=== PATIENT | female | born 1975 | race Caucasian/White ===

== ENCOUNTER 2016-11-17 16:41 | Inpatient (IN) ==
[2016-11-17] MEDS ORDERED: Ipratropium/Albuterol Neb 3 ML ONE (16:53)
[2016-11-17] MEDS ORDERED: Ipratropium/Albuterol Neb 3 ML IH ONE ×2 (16:57→17:01)
[2016-11-17] MEDS ORDERED: *HR* HYDROmorphone (PF) 1 MG/ML SYRINGE IVP ONE (17:00)
[2016-11-17 17:14] LABS: Hematocrit 40.2 % (35.3-44.9); Immature Granulocytes % 0.8 % (0-4); Lymphocytes % 4.6 %; Mean Corpuscular HGB Conc 32.3 g/dL (31.6-35.5); Monocytes % 3.3 %; Platelet Count 365 K/mcL (140-400); Red Blood Count 3.94 M/mcL (3.82-4.97); Red Cell Distribution Width 14.5 % (11.5-14.5); Segmented Neutrophils % 91.1 %
[2016-11-17 17:15] LABS: Basophils # 0.1 K/mcL (0.0-0.2); Basophils % 0.2 %; Monocytes # 0.7 K/mcL (0.0-1.3); Neutrophils # 19.7 K/mcL (1.6-8.9)
[2016-11-17 17:32] LABS: Alanine Aminotransferase 10 Units/L (0-55); Albumin 2.8 g/dL (3.5-5.0); Albumin/Globulin Ratio 0.8 (1.1-2.2); Alkaline Phosphatase 85 Units/L (38-126); Aspartate Amino Transferase 34 Units/L (5-34); BUN/Creatinine Ratio 13 (6-26); Bilirubin,Direct 0.2 mg/dL (0.0-0.5); Bilirubin,Indirect 0.4 mg/dL (0.0-1.2); Bilirubin,Total 0.6 mg/dL (0.2-1.2); Blood Urea Nitrogen 9 mg/dL (7-20); Calcium 9.3 mg/dL (8.6-10.8); Carbon Dioxide 26 mEq/L (19-29); Chloride 101 mEq/L (98-109); Globulin 3.7 g/dL (2.4-3.5); Glucose 121 mg/dL (70-99); Osmolality,Calculated 284 (280-300); Potassium 3.5 mEq/L (3.5-4.5); Sodium 137 mEq/L (136-145); Total Protein 6.5 g/dL (6.0-8.3); eGFR For African Americans > 60 (> 60); eGFR For Non-African Americans > 60 (> 60)
[2016-11-17] MEDS ORDERED: Vancomycin 750 MG in D5% in Water 250 ML IVPB ONE (17:35)
[2016-11-17] MEDS ORDERED: 0.9 % Sodium Chloride 1,000 ML IVC ONE (17:35)
--- NOTE | 2016-11-17 17:36 | Emergency Department Note ---
Disposition Clinical Impression: Small cell lung cancer Qualifiers: Laterality: right Qualified Code(s): C34.91 - Malignant neoplasm of unspecified part of right bronchus or lung Sepsis Qualifiers: Sepsis type: sepsis due to unspecified organism Qualified Code(s): A41.9 - Sepsis, unspecified organism Pneumonia Qualifiers: Pneumonia type: due to unspecified organism Laterality: bilateral Lung location : unspecified part of lung Qualified Code(s): J18.9 - Pneumonia, unspecified organism Disposition: Admitted As Inpatient Condition: Fair Forms: ED Satisfaction Letter Time of Disposition: 18:40 General Adult HPI - General Chief complaint: ED Shortness of Breath/Dyspnea Stated complaint: SOB/VIRI Time Seen by Provider: 11/17/16 16:46 Source: patient Nursing Notes Reviewed: Yes Vital Signs Reviewed: Yes - History of Present Illness HPI Narrative: 3-4 day history of abdominal pain and increasing shortness of breath. Does have a history of lung cancer and abdominal cancer. Subjective fevers at home. Right lower quadrant pain that is not consistent with her previous pain. Is more severe. Shortness of breath that is associated with a productive cough of yellow sputum. Abdominal pain is constant. No radiation. Pain Scale: 5 - Related Data Home Medications Medication Instructions Recorded Confirmed Albuterol Sulfate [Ventolin Hfa] 2 puff IH Q4H PRN 03/30/16 11/17/16 Ziprasidone HCl [Geodon] 60 mg PO BID 03/30/16 11/17/16 lamoTRIgine [Lamictal] 150 mg PO BID 03/30/16 11/17/16 Albuterol Neb [Proventil Neb] 2.5 mg IH TID PRN 04/08/16 11/17/16 Previous Rx's Medication Instructions Recorded Dexamethasone [Decadron] 4 mg PO BID #40 tab 04/16/16 Ondansetron [Zofran] 8 mg PO Q8HR PRN #90 tablet 04/16/16 Prochlorperazine Maleate 10 mg PO Q8HR PRN #90 tablet 04/16/16 [Compazine] Docusate Sodium [Colace] 100 mg PO BID PRN #60 capsule 06/08/16 Lactulose 10 gm PO BID PRN #300 mls 06/29/16 Diphenoxylate/Atropine [Lomotil 1 each PO QID PRN #90 tablet 09/17/16 2.5 mg/0.025 mg] Loperamide [Imodium] 2 mg PO QID PRN #90 mls 09/17/16 Dronabinol [Marinol] 5 mg PO BIDLS #60 capsule 09/24/16 Dicyclomine [Bentyl] 10 mg PO QID PRN #120 capsule 10/02/16 Lidocaine/Prilocaine [Emla] 1 appl TP PRN PRN #30 gm 10/23/16 OxyCODONE Immed Rel [Roxicodone 5 5 mg PO Q6H PRN #90 tablet 11/02/16 MG] metroNIDAZOLE [Flagyl] 500 mg PO TID #30 tablet 11/06/16 Allergies Allergy/AdvReac Type Severity Reaction Status Date / Time No Known Allergies Allergy Verified 04/30/16 12:48 All systems ED: reviewed and negative except as stated. Constitutional: Reports: fever (Subjective.), chills ENT ED: Denies: congestion Cardiovascular: Reports: dyspnea on exertion. Denies: chest pain, palpitations , syncope Respiratory: Reports: cough, dyspnea, sputum production (Yellow) Gastrointestinal: Reports: abdominal pain (Right lower quadrant). Denies: nausea, vomiting, diarrhea Genitourinary: Denies: urgency, dysuria, frequency, hematuria Musculoskeletal: Denies: back pain, neck pain Integumentary: Denies: rash Past Medical History - Past Medical History Attestation: Yes The following information was validated with the patient. Source: patient Medical history: Reports: asthma, cancer, COPD Surgical history: Reports: other Psychiatric history: Reports: bipolar NEW CAR SALESPERSON history: Reports: no NEW CAR SALESPERSON history - Social History Smoking Status: Current every day smoker Smokeless Tobacco Status: No Alcohol use: Reports: none Drug use: Reports: marijuana Physical Exam - General General appearance: alert, in distress - Head Head exam: atraumatic, normocephalic, normal inspection - Eye Eye exam: Present: normal appearance, PERRL, EOMI. Absent: scleral icterus - ENT ENT exam: normal exam, normal oropharynx, mucous membranes dry - Neck Neck exam: Present: normal inspection, full ROM, trachea midline - Chest Chest inspection: Present: normal inspection, symmetric chest wall rise. Absent : tenderness - Respiratory Respiratory exam: Present: respiratory distress, accessory muscle use, other ( Crackles in the left upper lobe rales in the left lower. Mild crackles in the right.). Absent: wheezes - Cardiovascular Cardiovascular exam: Present: regular rate, normal rhythm, normal heart sounds - Abdominal Exam Abdominal exam: Present: soft, tenderness (nurse practitioner), guarding, rebound (rlq), normal bowel sounds. Absent: distention, rigidity, organomegaly , trauma, Forrester's sign, Rovsing's sign, tenderness at McBurney's Point, ascites - Extremities Exam Extremities exam: Present: normal inspection, full ROM, normal capillary refill. Absent: tenderness, pedal edema - Back Exam Back exam: Present: normal inspection, full ROM. Absent: tenderness - Neurological Exam Neurological exam: Present: alert, oriented X3 - Psychiatric Psychiatric exam: Present: normal affect, normal mood - Skin Skin exam: Present: warm, dry, intact, normal color. Absent: rash, cyanosis, diaphoresis, erythema Course Course Narrative: Female patient with a history of lung and abdominal cancer presenting to the emergency department complaining of new right sided lower quadrant abdominal pain and shortness of breath. She states her abdominal pain has been getting worse over the weekend as has her shortness of breath. She was seen by her primary care physician earlier today and sent into the emergency department. On arrival here her oxygen saturation was in the 80s so she was placed on a nonrebreather. Patient states this made her feel better. She states that she has lung cancer and her right lung. On exam her left lung field has crackles in the upper lobes and rales in the lower. Her right lung has mild crackles. She does appear dyspneic during conversation. Her heart is mildly tachycardic. Her abdomen is soft however she does grimace and complaint of pain to her right lower quadrant. She states that she has had subjective fevers over the weekend. She does report a cough with yellow sputum. She denies any chest pain. A chest x-ray as well as an abdominal CT. She had lab work earlier today that showed an elevated white blood cell count. We will begin to treat patient for suspected lung source. - Reevaluation(s) Reevaluation #1: Patient has a left lower lobe and possible right lower lobe pneumonia. We have started her on vancomycin and Zosyn. She does have an elevated lactic acid. We have given her a fluid bolus of 1500 mL. We will admit her to the hospital for pneumonia and sepsis. The CT of her abdomen showed no growth and her metastatic lesion in her abdomen. Patient responded well to the 3 duo nebs. Time: 18:17 Reevaluation #2: Patient reassessed. She was still on a nonrebreather so we switched her to a nasal cannula at 6 L. She is tolerating this well and is right around 93-94%. This seems to have eased her respiratory distress as she is breathing easier on the nasal cannula. Patient is agreeable to admission to the hospital. Time: 18:39 - Consultations Consultation #1: Carri LOVELACE accepted patient in stable condition Time: 18:39 Vital Signs Temperature 98.3 F 11/17/16 16:45 Pulse Rate 129 11/17/16 16:45 Respiratory Rate 24 11/17/16 16:45 Blood Pressure 102/80 11/17/16 16:45 O2 Sat by Pulse Oximetry 97 11/17/16 16:45 Temperature 98.3 F 11/17/16 16:45 Pulse Rate 111 11/17/16 18:18 Respiratory Rate 20 11/17/16 18:18 Blood Pressure 104/68 11/17/16 18:18 O2 Sat by Pulse Oximetry 90 11/17/16 18:18 Oxygen Delivery Oxygen Delivery Non Rebreather Mask Medical Decision Making - MDM Narrative Medical decision making narrative: I examined this patient and my medical decision-making was reviewed with the Resident Physician. I agree with the documented findings, disposition and treatment plan as described except to the extent set forth below. I evaluated this patient with Dr. Salazar and myself, I agree with her evaluation and treatment plan Suprax care of the patient's stay. Patient sent in from oncology due to dyspnea, history of ovarian and lung cancer which sounds and mist metastatic disease elevated white count. She also complains of right lower quadrant pain. Review her labs from today going data BMP chest x-ray abdominal CT and reassessed. She is in agreement with this plan. - Medical Records Medical records reviewed: Yes I reviewed the patient's medical records. - Lab Data Lab results reviewed: Yes I reviewed the patient's lab results. Result diagrams: 11/17/16 17:09 11/17/16 17:09 Lab Results 11/17/16 11/17/16 11/17/16 Range/Units 17:09 17:09 17:09 WBC 21.6 H (4.3-11.1) K/mcL RBC 3.94 (3.82-4.97) M/mcL Hgb 13.0 (11.5-15.4) g/dL Hct 40.2 (35.3-44.9) % MCV 102.0 H (83.0-100.0) fL MCH 33.0 (28.0-33.3) pg MCHC 32.3 (31.6-35.5) g/dL RDW 14.5 (11.5-14.5) % Plt Count 365 (140-400) K/mcL MPV 9.0 L (9.4-12.4) fL Immature Gran % 0.8 (0-4) % Seg Neutrophils % 91.1 % Lymphocytes % 4.6 % Monocytes % 3.3 % Eosinophils % 0.0 % Basophils % 0.2 % Neutrophils # 19.7 H (1.6-8.9) K/mcL Lymphocytes # 1.0 (0.6-4.6) K/mcL Monocytes # 0.7 (0.0-1.3) K/mcL Eosinophils # 0.0 (0.0-0.6) K/mcL Basophils # 0.1 (0.0-0.2) K/mcL Sodium 137 (136-145) mEq/L Potassium 3.5 (3.5-4.5) mEq/L Chloride 101 (98-109) mEq/L Carbon Dioxide 26 (19-29) mEq/L BUN 9 (7-20) mg/dL Creatinine 0.70 (0.57-1.11) mg/dL Est GFR ( Amer) > 60 (> 60) Est GFR (Non-Af Amer) > 60 (> 60) BUN/Creatinine Ratio 13 (6-26) Glucose 121 H (70-99) mg/dL Calculated Osmolality 284 (280-300) Lactic Acid 2.6 H (0.5-2.2) mmol/L Calcium 9.3 (8.6-10.8) mg/dL Phosphorus 3.8 (2.3-4.7) mg/dL Magnesium 1.6 (1.6-2.6) mg/dL Total Bilirubin 0.6 (0.2-1.2) mg/dL Direct Bilirubin 0.2 (0.0-0.5) mg/dL Indirect Bilirubin 0.4 (0.0-1.2) mg/dL AST 34 (5-34) Units/L ALT 10 (0-55) Units/L Alkaline Phosphatase 85 (38-126) Units/L Troponin I (0-0.03) ng/mL B-Natriuretic Peptide (0-100) pg/mL Serum Total Protein 6.5 (6.0-8.3) g/dL Albumin 2.8 L (3.5-5.0) g/dL Globulin 3.7 H (2.4-3.5) g/dL Albumin/Globulin Ratio 0.8 L (1.1-2.2) 11/17/16 11/17/16 Range/Units 17:09 17:09 WBC (4.3-11.1) K/mcL RBC (3.82-4.97) M/mcL Hgb (11.5-15.4) g/dL Hct (35.3-44.9) % MCV (83.0-100.0) fL MCH (28.0-33.3) pg MCHC (31.6-35.5) g/dL RDW (11.5-14.5) % Plt Count (140-400) K/mcL MPV (9.4-12.4) fL Immature Gran % (0-4) % Seg Neutrophils % % Lymphocytes % % Monocytes % % Eosinophils % % Basophils % % Neutrophils # (1.6-8.9) K/mcL Lymphocytes # (0.6-4.6) K/mcL Monocytes # (0.0-1.3) K/mcL Eosinophils # (0.0-0.6) K/mcL Basophils # (0.0-0.2) K/mcL Sodium (136-145) mEq/L Potassium (3.5-4.5) mEq/L Chloride (98-109) mEq/L Carbon Dioxide (19-29) mEq/L BUN (7-20) mg/dL Creatinine (0.57-1.11) mg/dL Est GFR ( Amer) (> 60) Est GFR (Non-Af Amer) (> 60) BUN/Creatinine Ratio (6-26) Glucose (70-99) mg/dL Calculated Osmolality (280-300) Lactic Acid (0.5-2.2) mmol/L Calcium (8.6-10.8) mg/dL Phosphorus (2.3-4.7) mg/dL Magnesium (1.6-2.6) mg/dL Total Bilirubin (0.2-1.2) mg/dL Direct Bilirubin (0.0-0.5) mg/dL Indirect Bilirubin (0.0-1.2) mg/dL AST (5-34) Units/L ALT (0-55) Units/L Alkaline Phosphatase (38-126) Units/L Troponin I 0.01 (0-0.03) ng/mL B-Natriuretic Peptide 31 (0-100) pg/mL Serum Total Protein (6.0-8.3) g/dL Albumin (3.5-5.0) g/dL Globulin (2.4-3.5) g/dL Albumin/Globulin Ratio (1.1-2.2) - Radiology Data Radiology results reviewed: Yes I reviewed the patient's radiology results. Chest X-Ray 11/17/16 16:46 IMPRESSION: New diffuse airspace disease within the left lung and within the right base. Findings concerning for multifocal pneumonia. Patient's right hilar mass and adenopathy are again seen, better evaluated on recent CT. D/ / Cielo Carver MD / Cielo Carver MD Interpreting Provider: Cielo Carver MD Abdomen/Pelvis CT 11/17/16 17:18 IMPRESSION: 1. In the interval, there has been development of extensive alveolar ground-glass opacity throughout both visualized lungs, greater on the left. This is a nonspecific finding. It can be seen with alveolar hemorrhage, pneumonia, and pulmonary edema. 2. Re- demonstration of a large pelvic metastatic lesion, which is unchanged in size. This creates mass effect upon the pelvic viscera, similar when compared to the previous exam. Having said that, the hydronephrosis seen on the right previously is no longer identified. D/ / Michael Foley MD / Michael Foley MD Interpreting Provider: Michael Foley MD - EKG Data EKG #1 EKG attestation: Yes I reviewed and interpreted this EKG. EKG results narrative: Sinus tachycardia at a rate of 106. [place] interval is 142. Rastafarian is 80. QT is 327. QTC is 389. No signs of ischemia.
[2016-11-17] MEDS ORDERED: Piperacillin/Tazobactam 3.375 GM in D5% in Water (Mini-Bag+) 100 ML IVPB ONE (17:41)
[2016-11-17] MEDS ORDERED: 0.9 % Sodium Chloride 500 ML IVC ONE (17:44)
[2016-11-17 18:00] LABS: Magnesium 1.6 mg/dL (1.6-2.6); Phosphorous 3.8 mg/dL (2.3-4.7)
[2016-11-17 18:43] LABS: Bilirubin,Urine Small (Negative); Blood,Urine Negative (Negative); Clarity,Urine Clear (Clear); Color,Urine Dark Yellow (Yellow); Glucose,Urine (UA) Normal (Normal); Ketones,Urine Trace mg/dL (Negative); Leukocyte Esterase,Urine Trace (Negative); Nitrite,Urine Positive (Negative); Protein,Urine 100 mg/dL (Neg-Trace); Urobilinogen,Urine Normal (Normal)
[2016-11-17 18:46] LABS: Bacteria,Urine None Seen per hpf (None-Few); RBC,Urine 15-30 per hpf (0-3); Squamous Epithelial Cell,Urine Many per lpf (None-Few)
[2016-11-17 18:48] LABS: Specific Gravity,Urine >= 1.099 (1.010-1.025)
[2016-11-17] MEDS: Nicotine 21 MG PATCH.TD24 TD SCH (19:17)
[2016-11-17] MEDS ORDERED: Ondansetron 4 MG/2 ML VIAL IVP PRN (19:57)
[2016-11-17] MEDS ORDERED: MOM Conc 10 ML UD.LIQ PO PRN (19:57)
[2016-11-17] MEDS ORDERED: Acetaminophen 325 MG TABLET PO PRN (19:57)
[2016-11-17] MEDS ORDERED: *HR* Promethazine 25 MG/ML VIAL IVP PRN (19:57)
[2016-11-17] MEDS ORDERED: Naloxone 0.4 MG/ML INJ IVP PRN (19:57)
[2016-11-17] MEDS ORDERED: *HR* HYDROmorphone (PF) 1 MG/ML SYRINGE IVP PRN (19:57)
[2016-11-17] MEDS ORDERED: 0.9 % Sodium Chloride 1,000 ML IVC SCH (20:00)
[2016-11-17] MEDS ORDERED: Albuterol 2.5 MG/3 ML NEBULIZER IH PRN (20:03)
[2016-11-17] MEDS ORDERED: Budesonide/Formoterol 160/4.5 MDI IH PRN (20:03)
[2016-11-17] MEDS: lamoTRIgine 100 MG TABLET PO SCH (21:16)
[2016-11-17] MEDS: Ziprasidone 20 MG CAPSULE PO SCH (21:17)
[2016-11-17] MEDS: *HR* HYDROcodone/Acet 5/325 mg TABLET PO PRN (21:17)
[2016-11-17] MEDS: Famotidine 20 MG TABLET PO SCH (21:17)
--- NOTE | 2016-11-17 21:48 | Internal Med History&Physical ---
Date of Encounter: 11/17/16 Time of Encounter: 08:45 Assessment and Plan (1) Acute respiratory failure with hypoxia Current visit: Yes Status: Acute Will admit the pt into Tele Pt does meet sepsis criteria with elevated WBC, Tachycardia, source of as PNA Reviewed labs and CXR and CT of ABd/ Pelvis CXR showed patchy infiltrates Will start her on empirical abx Zosyn and Vancomycin Cont duoneb and O2 also place her on high dose IV steroids Hold IV fluids due to pulmonary edema Blood cx were sent will get sputum cx Lactic acid already started trending down (2) Pneumonia Current visit: Yes Status: Acute Mostly bacterial pneumonia with possible post obstructive pneumonia Qualifiers: Pneumonia type: due to unspecified organism Laterality: bilateral Lung location: unspecified part of lung Qualified Code(s): J18.9 - Pneumonia, unspecified organism (3) Sepsis Current visit: Yes Status: Acute see above Qualifiers: Sepsis type: sepsis due to unspecified organism Qualified Code(s): A41.9 - Sepsis, unspecified organism (4) Pulmonary edema Current visit: Yes Status: Acute Due to pneumonia hold in IV fluids now will give Lasix PRN only due to her Sepsis Qualifiers: Qualified Code(s): J81.0 - Acute pulmonary edema (5) Small cell lung cancer Current visit: Yes Status: Acute Will consult Heme Onc in AM Qualifiers: Laterality: right Qualified Code(s): C34.91 - Malignant neoplasm of unspecified part of right bronchus or lung (6) Pelvic mass Current visit: Yes Status: Acute Due to metastatic disease Cont supportive care with IV analgesics Heme Onc will be consulted in AM (7) Tobacco dependence Current visit: Yes Status: Acute Counseled to quit on nicotine patch Internal Medicine - H&P: HPI Chief complaint: Shortness of breath Admitted From: Emergency Dept Plans for Post Hospital Care: Home History of present illness: Ms. Prince is a 41 year old female with small cell lung cancer STAGE IV s/p bx of right hilar mediastinal mass, and metastatic pelvic masses,Palliative carboplatin etoposide chemotherapy. chronic tobacco dependence, chronic moderate intermittent asthma pt went to her Heme Onc office today with progressively worsening SOB and DE [place] ROSA, cough with yellow expectoration from last 4 -5 days. Pt was sent to our ER for further evaluation. She had CXR done which showed multi lobular pneumonia, also had CT of Abd and Pelvis done which showed interstitial lung disease, pulmonary edema and pneumonia. Pt states she is feeling little better now. Denied any CP. Still has moderate SOB and DE [place] ROSA Past Med Surg Social Fam HX - Past Medical History Medical history: asthma, cancer, COPD Psychiatric history: bipolar - Past Surgical History Surgical History: other - Social History Smoking Status: Current every day smoker Smokeless Tobacco Status: No Alcohol use: none Drug use: marijuana - Family History Mother Adopted: [place]: Deisy Dewey Age: 59 Family Member Ethnicity: Non- Living Status: Still Living Hx Family Cardiac Disorders: No Hx Family Respiratory Disorders: No Hx Family Cancer: Yes Hx Family GI Disorders: No Hx Family Endocrine Disorder: No Hx Family Musculoskeletal Disorders: No Hx Family Reproductive Disorders: No Internal Medicine - H&P: Meds Albuterol Sulfate [Ventolin Hfa] 2 puff IH Q4H PRN 03/30/16 [History] Ziprasidone HCl [Geodon] 60 mg PO BID 03/30/16 [History] lamoTRIgine [Lamictal] 150 mg PO BID 03/30/16 [History] Albuterol Neb [Proventil Neb] 2.5 mg IH TID PRN 04/08/16 [History] OxyCODONE Immed Rel [Roxicodone 5 MG] 5 mg PO Q6H PRN #90 tablet 11/02/16 [Rx] Budesonide/Formoterol 160/4.5 [Symbicort 160/4.5] 2 puff IH BID PRN 11/17/16 [ History] Riley-3/Dha/Epa/Fish Oil [Fish Oil Conc 1,000 mg Softgel] 1,000 mg PO DAILY 05/01 [History] 3 Allergy/AdvReac Type Severity Reaction Status Date / Time No Known Allergies Allergy Verified 04/30/16 12:48 All Systems PM: A 10-system review of systems was performed and is negative for pertinent findings except as documented above in the HPI. Review of systems: All the systems are reviewed everything is benign except the systems and symptoms I mentioned in the history of present illness - Constitutional Vitals: Temp Pulse Resp BP Pulse Ox 98.4 F 100 18 103/68 90 11/17/16 19:47 11/17/16 19:47 11/17/16 19:47 11/17/16 19:47 11/17/16 19:47 General appearance: Present: mild distress, A&O X 3, answers questions appropriately - Head Head exam: Present: atraumatic, normal inspection - Respiratory Respiratory exam: Present: decreased breath sounds, rales (mild), respiratory distress (mild), rhonchi, wheezes (moderate) - Cardiovascular Cardiovascular exam: Present: +S1, +S2, tachycardia. Absent: systolic murmur - GI/Abdominal GI/Abdominal exam: Present: soft, tenderness (mild discomfort noticed in the lower abdomen). Absent: rebound, rigid - Extremities Exam Extremities exam: Absent: calf tenderness, pedal edema, tenderness - Back Exam Back exam: Absent: CVA tenderness (L), CVA tenderness (R) - Neurological Exam Neurological exam: Present: alert, oriented X3 - Psychiatric Psychiatric exam: Present: anxious Internal Med - H&P Results - Labs CBC & Chem 7: 11/17/16 17:09 11/17/16 17:09
[2016-11-17] MEDS ORDERED: *HR* Morphine 2 MG/ML SYRINGE IVP PRN (23:34)
[2016-11-17] MEDS: 0.9 % Sodium Chloride 500 ML IVC SCH (23:48)
[2016-11-17] MEDS: Piperacillin/Tazobactam 3.375 GM in D5% in Water (Mini-Bag+) 100 ML IVPB SCH (23:48)
[2016-11-18] MEDS: 0.9 % Sodium Chloride 1,000 ML IVC SCH ×2 (01:09→15:49)
[2016-11-18] MEDS: MethylPREDNISolone 40 MG/ML VIAL IVP SCH ×4 (01:09→17:25)
[2016-11-18] MEDS: *HR* HYDROcodone/Acet 5/325 mg TABLET PO PRN ×2 (04:08→09:02)
[2016-11-18 06:20] LABS: Basophils % 0.1 %; Hemoglobin 11.5 g/dL (11.5-15.4); Immature Granulocytes % 1.1 % (0-4); Lymphocytes # 0.5 K/mcL (0.6-4.6); Lymphocytes % 2.5 %; Mean Corpuscular HGB Conc 31.9 g/dL (31.6-35.5); Mean Corpuscular Hemoglobin 33.2 pg (28.0-33.3); Mean Platelet Volume 9.4 fL (9.4-12.4); Monocytes # 0.2 K/mcL (0.0-1.3); Neutrophils # 19.6 K/mcL (1.6-8.9); Platelet Count 319 K/mcL (140-400); Red Blood Count 3.46 M/mcL (3.82-4.97); Red Cell Distribution Width 14.6 % (11.5-14.5); Segmented Neutrophils % 95.3 %
[2016-11-18] MEDS: *HR* Enoxaparin 40 MG/0.4 ML SYRINGE SQ SCH (06:33)
[2016-11-18 06:42] LABS: Alanine Aminotransferase 11 Units/L (0-55); Albumin 2.3 g/dL (3.5-5.0); Albumin/Globulin Ratio 0.7 (1.1-2.2); Alkaline Phosphatase 75 Units/L (38-126); Aspartate Amino Transferase 39 Units/L (5-34); BUN/Creatinine Ratio 16 (6-26); Bilirubin,Total 0.2 mg/dL (0.2-1.2); Blood Urea Nitrogen 9 mg/dL (7-20); Calcium 8.5 mg/dL (8.6-10.8); Carbon Dioxide 26 mEq/L (19-29); Chloride 106 mEq/L (98-109); Globulin 3.3 g/dL (2.4-3.5); Glucose 131 mg/dL (70-99); Magnesium 1.8 mg/dL (1.6-2.6); Osmolality,Calculated 286 (280-300); Phosphorous 3.1 mg/dL (2.3-4.7); Sodium 138 mEq/L (136-145); Total Protein 5.6 g/dL (6.0-8.3); eGFR For African Americans > 60 (> 60); eGFR For Non-African Americans > 60 (> 60)
[2016-11-18] MEDS ORDERED: Vancomycin 750 MG in D5% in Water 250 ML IVPB SCH (07:00)
[2016-11-18] MEDS ORDERED: Albuterol 2.5 MG/3 ML NEBULIZER IH PRN (07:53)
[2016-11-18] MEDS: Piperacillin/Tazobactam 3.375 GM in D5% in Water (Mini-Bag+) 100 ML IVPB SCH ×2 (09:04→15:50)
[2016-11-18] MEDS: lamoTRIgine 100 MG TABLET PO SCH ×2 (09:05→21:42)
[2016-11-18] MEDS: Famotidine 20 MG TABLET PO SCH ×2 (09:05→21:42)
[2016-11-18] MEDS: Nicotine 21 MG PATCH.TD24 TD SCH (09:05)
[2016-11-18] MEDS ORDERED: Aminoglycoside Consult 1 EACH MC ONE (09:08)
[2016-11-18] MEDS: Ziprasidone 20 MG CAPSULE PO SCH ×2 (09:08→21:42)
[2016-11-18] MEDS: Budesonide/Formoterol 160/4.5 MDI IH SCH ×2 (10:14→20:18)
--- NOTE | 2016-11-18 12:13 | Electrocardiograph Report ---
[place] [id number] Test Date: 2016-11-17 Pat Name: Teresa Prince Department: 103 Room: 2A14 Gender: F Quebracho Tanner: JUDY : 1975 Requested By: Celestino Bird Order Number: [id number] Reading MD: Rock Rocha Measurements Intervals [place] Rate: 106 P: 73 SC: 142 QRS: 90 QRSD: 80 T: 86 QT: 327 QTc: 389 Interpretive Statements SINUS TACHYCARDIA ABNORMAL RHYTHM ECG Electronically Signed On 11-18-2016 12:11:39 EDT by Rock Rocha
[2016-11-18] MEDS: *HR* Morphine 2 MG/ML SYRINGE IVP PRN ×2 (12:33→19:22)
--- NOTE | 2016-11-18 13:03 | Internal Med Progress Note ---
Date of Encounter: 11/18/16 Time of Encounter: 13:00 - Assessment and plan (1) Sepsis Current Visit: Yes Status: Acute Assessment and plan: Acute on chronic hypoxic respiratory failure due to pulmonary edema from Sepsis secondary to possible healthcare associated pneumonia/gram-negative pneumonia present upon admission Discontinue vancomycin, continue Zosyn day 2 and add Levaquin to cover for atypicals No IV fluid due to pulmonary edema CT scan of the abdomen showed bilateral pulmonary infiltrates the Gonzalo percent pneumonia or pulmonary edema, there is a large pelvic mass represents metastatic disease Qualifiers: Sepsis type: sepsis due to unspecified organism Qualified Code(s): A41.9 - Sepsis, unspecified organism (2) Pneumonia Current Visit: Yes Status: Acute Qualifiers: Pneumonia type: due to unspecified organism Laterality: bilateral Lung location: unspecified part of lung Qualified Code(s): J18.9 - Pneumonia, unspecified organism (3) Acute respiratory failure with hypoxia Current Visit: Yes Status: Acute (4) Pelvic mass Current Visit: Yes Status: Acute Assessment and plan: Follow-up with oncology as an outpatient Start OxyContin for pain (5) Tobacco dependence Current Visit: Yes Status: Acute Assessment and plan: Smoking cessation counseling (6) Pulmonary edema Current Visit: Yes Status: Acute Qualifiers: Qualified Code(s): J81.0 - Acute pulmonary edema (7) Small cell lung cancer Current Visit: Yes Status: Acute Qualifiers: Laterality: right Qualified Code(s): C34.91 - Malignant neoplasm of unspecified part of right bronchus or lung - Subjective Interval history: Physical still short of breath requiring 8 L of oxygen, denies any chest pain, is bringing up yellowish phlegm and coughing constantly, denies any dysuria, complains of abdominal pain 5 out of 10 in intensity. No diarrhea - Constitutional Vitals: Temp Pulse Resp BP Pulse Ox 98.3 F 87 17 108/66 96 11/18/16 10:58 11/18/16 10:58 11/18/16 10:58 11/18/16 10:58 11/18/16 10:58 General appearance: Present: mild distress, A&O X 3, answers questions appropriately - Head Head exam: Present: atraumatic, normocephalic - Eye Eye exam: Present: PERRL, conjuntiva pink, sclera anicteric Pupils: Present: PERRL - Neck Neck exam general surgery: Present: supple, trachea midline. Absent: lymphadenopathy - Respiratory Respiratory exam: Present: CTAB, rales, wheezes (Diffuse crackles and wheezing) . Absent: accessory muscle use, rhonchi - Cardiovascular Cardiovascular exam: Present: RRR, +S1, +S2. Absent: diastolic murmur, gallop, rubs, systolic murmur - GI/Abdominal GI/Abdominal exam: Present: distended (Distended abdomen, mildly tender to to palpation in the lower pelvic area, no rebound), normal bowel sounds, soft, no peritoneal signs. Absent: tenderness - Extremities Exam Extremities exam: Present: warm, radial pulses palpable and symmetrical. Absent : calf tenderness, cyanotic, pedal edema - Neurological Exam Neurological exam: Present: CN II-XII intact, oriented X3, no focal deficits. Absent: pronater drift, facial droop, speech deficit - Skin Skin exam: Present: dry, intact Internal Medicine: Result - Labs CBC & Chem 7: 11/18/16 05:50 11/18/16 05:50 Labs: Short CBC 11/18/16 Range/Units 05:50 WBC 20.6 H (4.3-11.1) K/mcL Hgb 11.5 D (11.5-15.4) g/dL Hct 36.0 (35.3-44.9) % Plt Count 319 (140-400) K/mcL Neutrophils # 19.6 H (1.6-8.9) K/mcL BMP 11/18/16 05:50 Sodium 138 Potassium 4.0 Chloride 106 Carbon Dioxide 26 BUN 9 Creatinine 0.58 Glucose 131 H Calcium 8.5 L Liver Function 11/18/16 Range/Units 05:50 Total Bilirubin 0.2 (0.2-1.2) mg/dL AST 39 H (5-34) Units/L ALT 11 (0-55) Units/L Alkaline Phosphatase 75 (38-126) Units/L Albumin 2.3 L (3.5-5.0) g/dL - VTE Documentation of Mechanical Device: Graduated compression elastic hosiery Consult Discharge Plan - Plan Referrals: Lucia Treviño, PHOTOGRAPHY EDITOR [Primary Care Provider] -
[2016-11-18] MEDS: Levofloxacin 750 MG/150 ML 750 MG/150 ML BAG IVPB SCH (13:55)
[2016-11-18] MEDS: *HR* OxyCODONE ER (12 HR) 10 MG TABLET PO SCH ×2 (13:55→21:42)
[2016-11-19] MEDS: MethylPREDNISolone 40 MG/ML VIAL IVP SCH ×3 (00:10→17:32)
[2016-11-19] MEDS: Piperacillin/Tazobactam 3.375 GM in D5% in Water (Mini-Bag+) 100 ML IVPB SCH ×4 (00:10→23:30)
[2016-11-19] MEDS: *HR* OxyCODONE Immed Rel 5 MG TABLET PO PRN ×2 (04:23→12:24)
[2016-11-19 05:37] LABS: Hematocrit 37.4 % (35.3-44.9); Mean Corpuscular HGB Conc 32.1 g/dL (31.6-35.5); Mean Corpuscular Hemoglobin 33.4 pg (28.0-33.3); Mean Corpuscular Volume 104.2 fL (83.0-100.0); Mean Platelet Volume 9.3 fL (9.4-12.4); Platelet Count 375 K/mcL (140-400); Red Blood Count 3.59 M/mcL (3.82-4.97); Red Cell Distribution Width 14.5 % (11.5-14.5)
[2016-11-19 05:52] LABS: BUN/Creatinine Ratio 13 (6-26); Blood Urea Nitrogen 8 mg/dL (7-20); Carbon Dioxide 26 mEq/L (19-29); Chloride 106 mEq/L (98-109); Glucose 153 mg/dL (70-99); Osmolality,Calculated 291 (280-300); Potassium 3.7 mEq/L (3.5-4.5); Sodium 140 mEq/L (136-145); eGFR For African Americans > 60 (> 60); eGFR For Non-African Americans > 60 (> 60)
[2016-11-19] MEDS: *HR* Enoxaparin 40 MG/0.4 ML SYRINGE SQ SCH (05:57)
[2016-11-19] MEDS: Famotidine 20 MG TABLET PO SCH ×2 (09:12→19:54)
[2016-11-19] MEDS: Nicotine 21 MG PATCH.TD24 TD SCH (09:12)
--- NOTE | 2016-11-19 10:09 | Internal Med Progress Note ---
Date of Encounter: 11/19/16 Time of Encounter: 10:06 - Assessment and plan (1) Sepsis Current Visit: Yes Status: Acute Assessment and plan: Acute on chronic hypoxic respiratory failure due to acute pulmonary edema from Sepsis secondary to possible healthcare associated pneumonia/gram-negative pneumonia present upon admission/ small cell carcinoma Discontinued vancomycin. Continue Zosyn day 3 and Levaquin day 2 to cover for atypicals No IV fluid due to pulmonary edema CT scan of the abdomen showed bilateral pulmonary infiltrates in both bases compatible with pneumonia or pulmonary edema, there is a large pelvic mass represents metastatic disease CT scan of the chest recommended by Dr Tavarez Qualifiers: Sepsis type: sepsis due to unspecified organism Qualified Code(s): A41.9 - Sepsis, unspecified organism (2) Pneumonia Current Visit: Yes Status: Acute Qualifiers: Pneumonia type: due to unspecified organism Laterality: bilateral Lung location: unspecified part of lung Qualified Code(s): J18.9 - Pneumonia, unspecified organism (3) Acute respiratory failure with hypoxia Current Visit: Yes Status: Acute (4) Pelvic mass Current Visit: Yes Status: Acute Assessment and plan: Follow-up with oncology Dr Tavarez will possible arrange radiotherapy either as inpatient or outpatient OxyContin for pain (5) Tobacco dependence Current Visit: Yes Status: Acute Assessment and plan: Smoking cessation counseling (6) Pulmonary edema Current Visit: Yes Status: Acute Qualifiers: Qualified Code(s): J81.0 - Acute pulmonary edema (7) Small cell lung cancer Current Visit: Yes Status: Acute Qualifiers: Laterality: right Qualified Code(s): C34.91 - Malignant neoplasm of unspecified part of right bronchus or lung - Subjective Interval history: Still very short of breath requiring 10 L of oxygen, denies any chest pain, is bringing up yellowish phlegm and coughing constantly, denies any dysuria, complains of abdominal pain 5 out of 10 in intensity. No diarrhea - Constitutional Vitals: Temp Pulse Resp BP Pulse Ox 97.6 F 82 18 115/78 90 11/19/16 07:08 11/19/16 07:08 11/19/16 07:08 11/19/16 07:08 11/19/16 07:46 General appearance: Present: mild distress, A&O X 3, answers questions appropriately Exam: - Head Head exam: Present: atraumatic, normocephalic - Eye Eye exam: Present: PERRL, conjuntiva pink, sclera anicteric Pupils: Present: PERRL - Neck Neck exam general surgery: Present: supple, trachea midline. Absent: lymphadenopathy - Respiratory Respiratory exam: Present: CTAB, rales, wheezes (Diffuse crackles and wheezing) . Absent: accessory muscle use, rhonchi - Cardiovascular Cardiovascular exam: Present: RRR, +S1, +S2. Absent: diastolic murmur, gallop, rubs, systolic murmur - GI/Abdominal GI/Abdominal exam: Present: distended (Distended abdomen, mildly tender to to palpation in the lower pelvic area, no rebound), normal bowel sounds, soft, no peritoneal signs. Absent: tenderness - Extremities Exam Extremities exam: Present: warm, radial pulses palpable and symmetrical. Absent : calf tenderness, cyanotic, pedal edema - Neurological Exam Neurological exam: Present: CN II-XII intact, oriented X3, no focal deficits. Absent: pronater drift, facial droop, speech deficit - Skin Skin exam: Present: dry, intact Internal Medicine: Result - Labs CBC & Chem 7: 11/19/16 05:22 11/19/16 05:22 Labs: Short CBC 11/19/16 Range/Units 05:22 WBC 20.3 H (4.3-11.1) K/mcL Hgb 12.0 (11.5-15.4) g/dL Hct 37.4 (35.3-44.9) % Plt Count 375 (140-400) K/mcL BMP 11/19/16 05:22 Sodium 140 Potassium 3.7 Chloride 106 Carbon Dioxide 26 BUN 8 Creatinine 0.61 Glucose 153 H Calcium 9.0 - VTE Documentation of Mechanical Device: Graduated compression elastic hosiery Consult Discharge Plan - Plan Referrals: Lucia Treviño, [employer] [facility] [Primary Care Provider] -
[2016-11-19] MEDS: Budesonide/Formoterol 160/4.5 MDI IH SCH ×2 (10:16→21:58)
[2016-11-19] MEDS: lamoTRIgine 100 MG TABLET PO SCH ×2 (10:38→19:51)
[2016-11-19] MEDS: *HR* OxyCODONE ER (12 HR) 10 MG TABLET PO SCH ×3 (10:38→23:30)
[2016-11-19] MEDS: Ziprasidone 20 MG CAPSULE PO SCH ×2 (10:38→19:54)
[2016-11-19] MEDS: *HR* Morphine 2 MG/ML SYRINGE IVP PRN (11:20)
[2016-11-19] MEDS: Levofloxacin 750 MG/150 ML 750 MG/150 ML BAG IVPB SCH ×2 (11:55→14:22)
[2016-11-19] MEDS: Furosemide 20 MG/2 ML VIAL IVP SCH ×2 (12:20→19:54)
[2016-11-19] MEDS ORDERED: MethylPREDNISolone 40 MG/ML VIAL IVP SCH (21:00)
[2016-11-20] MEDS: *HR* OxyCODONE Immed Rel 5 MG TABLET PO PRN ×3 (02:04→23:23)
[2016-11-20 04:02] LABS: Hematocrit 36.8 % (35.3-44.9); Hemoglobin 11.5 g/dL (11.5-15.4); Mean Corpuscular HGB Conc 31.3 g/dL (31.6-35.5); Mean Corpuscular Hemoglobin 32.6 pg (28.0-33.3); Mean Corpuscular Volume 104.2 fL (83.0-100.0); Mean Platelet Volume 9.2 fL (9.4-12.4); Platelet Count 409 K/mcL (140-400); Red Blood Count 3.53 M/mcL (3.82-4.97); Red Cell Distribution Width 14.6 % (11.5-14.5)
[2016-11-20 04:25] LABS: BUN/Creatinine Ratio 16 (6-26); Blood Urea Nitrogen 11 mg/dL (7-20); Calcium 8.9 mg/dL (8.6-10.8); Carbon Dioxide 33 mEq/L (19-29); Chloride 100 mEq/L (98-109); Glucose 129 mg/dL (70-99); Osmolality,Calculated 297 (280-300); Potassium 3.3 mEq/L (3.5-4.5); Sodium 143 mEq/L (136-145); eGFR For African Americans > 60 (> 60); eGFR For Non-African Americans > 60 (> 60)
[2016-11-20] MEDS: *HR* Enoxaparin 40 MG/0.4 ML SYRINGE SQ SCH (06:06)
[2016-11-20] MEDS: MethylPREDNISolone 40 MG/ML VIAL IVP SCH ×2 (06:06→17:15)
[2016-11-20] MEDS: *HR* OxyCODONE ER (12 HR) 10 MG TABLET PO SCH ×3 (09:03→23:24)
[2016-11-20] MEDS: Piperacillin/Tazobactam 3.375 GM in D5% in Water (Mini-Bag+) 100 ML IVPB SCH ×3 (09:03→23:24)
[2016-11-20] MEDS: Famotidine 20 MG TABLET PO SCH ×2 (09:03→20:21)
[2016-11-20] MEDS: Furosemide 20 MG/2 ML VIAL IVP SCH ×2 (09:03→17:15)
[2016-11-20] MEDS: Nicotine 21 MG PATCH.TD24 TD SCH (09:04)
[2016-11-20] MEDS: *HR* Morphine 2 MG/ML SYRINGE IVP PRN (10:24)
[2016-11-20] MEDS: lamoTRIgine 100 MG TABLET PO SCH ×2 (10:25→20:21)
[2016-11-20] MEDS: Ziprasidone 20 MG CAPSULE PO SCH ×2 (10:31→20:20)
[2016-11-20] MEDS: Budesonide/Formoterol 160/4.5 MDI IH SCH ×2 (10:47→19:42)
--- NOTE | 2016-11-20 13:07 | Internal Med Progress Note ---
Date of Encounter: 11/20/16 Time of Encounter: 13:05 - Assessment and plan (1) Sepsis Current Visit: Yes Status: Acute Assessment and plan: Acute on chronic hypoxic respiratory failure due to acute pulmonary edema from Sepsis secondary to possible healthcare associated pneumonia/gram-negative pneumonia present upon admission/ small cell carcinoma Discontinued vancomycin. Continue Zosyn day 4 and Levaquin day 3 to cover for atypicals No IV fluid due to pulmonary edema CT scan of the abdomen showed bilateral pulmonary infiltrates in both bases compatible with pneumonia or pulmonary edema, there is a large pelvic mass represents metastatic disease CT scan of the chest showed: Right hilar mass and mediastinal adenopathy has significantly increased in size compared to prior study. There also multiple new small nodules within the right upper lung lobe concerning for satellite nodules. Findings are consistent with progression of disease. The patient's hilar and mediastinal adenopathy causes severe narrowing of the right upper lobe pulmonary artery with occlusion of the apical branch. No pulmonary embolism identified. New diffuse ground-glass opacity throughout the left lung involving the majority of the right lower lung suggestive of pneumonia. Qualifiers: Sepsis type: sepsis due to unspecified organism Qualified Code(s): A41.9 - Sepsis, unspecified organism (2) Pneumonia Current Visit: Yes Status: Acute Qualifiers: Pneumonia type: due to unspecified organism Laterality: bilateral Lung location: unspecified part of lung Qualified Code(s): J18.9 - Pneumonia, unspecified organism (3) Acute respiratory failure with hypoxia Current Visit: Yes Status: Acute (4) Pelvic mass Current Visit: Yes Status: Acute Assessment and plan: Follow-up with oncology Dr Tavarez will possible arrange radiotherapy in the near future OxyContin for pain (5) Tobacco dependence Current Visit: Yes Status: Acute Assessment and plan: Smoking cessation counseling (6) Pulmonary edema Current Visit: Yes Status: Acute Assessment and plan: Continue Lasix, Potassium due to hypokalemia Qualifiers: Qualified Code(s): J81.0 - Acute pulmonary edema (7) Small cell lung cancer Current Visit: Yes Status: Acute Qualifiers: Laterality: right Qualified Code(s): C34.91 - Malignant neoplasm of unspecified part of right bronchus or lung - Subjective Interval history: Still short of breath requiring 8 L of oxygen, denies any chest pain, is bringing last phlegm and coughing constantly, denies any dysuria, complains of abdominal pain 5 out of 10 in intensity. No diarrhea - Constitutional Vitals: Temp Pulse Resp BP Pulse Ox 97.7 F 101 22 106/69 95 11/20/16 11:00 11/20/16 11:00 11/20/16 11:00 11/20/16 11:00 11/20/16 11:00 General appearance: Present: mild distress, A&O X 3, answers questions appropriately Exam: - Head Head exam: Present: atraumatic, normocephalic - Eye Eye exam: Present: PERRL, conjuntiva pink, sclera anicteric Pupils: Present: PERRL - Neck Neck exam general surgery: Present: supple, trachea midline. Absent: lymphadenopathy - Respiratory Respiratory exam: Present: CTAB, rales, wheezes (Diffuse crackles and wheezing) . Absent: accessory muscle use, rhonchi - Cardiovascular Cardiovascular exam: Present: RRR, +S1, +S2. Absent: diastolic murmur, gallop, rubs, systolic murmur - GI/Abdominal GI/Abdominal exam: Present: distended (Distended abdomen, mildly tender to to palpation in the lower pelvic area, no rebound), normal bowel sounds, soft, no peritoneal signs. Absent: tenderness - Extremities Exam Extremities exam: Present: warm, radial pulses palpable and symmetrical. Absent : calf tenderness, cyanotic, pedal edema - Neurological Exam Neurological exam: Present: CN II-XII intact, oriented X3, no focal deficits. Absent: pronater drift, facial droop, speech deficit - Skin Skin exam: Present: dry, intact Internal Medicine: Result - Labs CBC & Chem 7: 11/20/16 03:43 11/20/16 03:43 Labs: Short CBC 11/20/16 Range/Units 03:43 WBC 15.5 H (4.3-11.1) K/mcL Hgb 11.5 (11.5-15.4) g/dL Hct 36.8 (35.3-44.9) % Plt Count 409 H (140-400) K/mcL BMP 11/20/16 03:43 Sodium 143 Potassium 3.3 L Chloride 100 Carbon Dioxide 33 H BUN 11 Creatinine 0.70 Glucose 129 H Calcium 8.9 - Impressions Impressions Chest CTA 11/19/16 11:30 IMPRESSION: The patient's right hilar mass and mediastinal adenopathy has significantly increased in size compared to prior study. There also multiple new small nodules within the right upper lung lobe concerning for satellite nodules. Findings are consistent with progression of disease. The patient's hilar and mediastinal adenopathy causes severe narrowing of the right upper lobe pulmonary artery with occlusion of the apical branch. No pulmonary embolism identified. New diffuse ground-glass opacity throughout the left lung involving the majority of the right lower lung suggestive of pneumonia. D/ / Cielo Carver MD / Cielo Carver MD Interpreting Provider: Cielo Carver MD - VTE Documentation of Mechanical Device: Graduated compression elastic hosiery Consult Discharge Plan - Plan Referrals: Lucia Treviño CONSULTING SOLUTION MANAGER [Primary Care Provider] -
[2016-11-20] MEDS: Levofloxacin 750 MG/150 ML 750 MG/150 ML BAG IVPB SCH (13:36)
--- NOTE | 2016-11-20 15:56 | Rad Onc Consult Note ---
Radiation Oncology HPI - Oncology history Comments: Diagnosis: Extensive stage small cell lung cancer diagnosed 03/2016 Previous Treatment: 04/08/2016: Bronchoscopy with endobronchial ultrasound and biopsy 05/11/2016: Needle core biopsy of uterine mass (small cell carcinoma) 05/13/2016 - 09/02/2016: Carboplatin/Etoposide x 6 cycles 09/24/2016 - 10/30/2016: Irinotecan Date: 11/20/16 Primary Care Provider: Lucia Treviño CNP History of present illness: Ms. Prince is a 41-year-old female smoker who is seen in her hospital room today regarding her [place] refractory extensive stage small cell lung cancer. She was initially diagnosed in March 2016. When she presented with right- sided chest pain or she was found to have a right hilar mass invading the mediastinum with postobstructive changes. Bronchoscopy and biopsy demonstrated small cell lung cancer. MRI of the brain was negative. On systemic imaging a large pelvic mass was noted which was biopsied in April 2016 demonstrated small cell lung cancer. She went on to receive 6 cycles of carboplatin and etoposide which she completed in July 2016. She had a mixed response to treatment and has since been on irinotecan. More recently, she has been having more pelvic discomfort from the mass. She is currently admitted for acute on chronic hypoxic respiratory failure due to likely pneumonia. CTA chest yesterday demonstrated progression of her thoracic disease. There was diffuse groundglass opacity throughout the left lung and the majority of the right lower lobe. Today, she continues to be quite dyspneic. She notes persistent constant discomfort in her pelvis which is worse with moving. She denies any bowel or bladder dysfunction. She denies any neurologic complaints. She denies hemoptysis. Code Status: Full Code Past Medical History: asthma Other History: Extensive stage small cell lung cancer Smoking Status: Current every day smoker Smokeless Tobacco Status: No Alcohol use: none Drug use: marijuana Family History -Oncology: cancer (mother with possible ovarian cancer) Oncology - Medications Albuterol Sulfate [Ventolin Hfa] 2 puff IH Q4H PRN 03/30/16 [History] Ziprasidone HCl [Geodon] 60 mg PO BID 03/30/16 [History] lamoTRIgine [Lamictal] 150 mg PO BID 03/30/16 [History] Albuterol Neb [Proventil Neb] 2.5 mg IH TID PRN 04/08/16 [History] OxyCODONE Immed Rel [Roxicodone 5 MG] 5 mg PO Q6H PRN #90 tablet 11/02/16 [Rx] Budesonide/Formoterol 160/4.5 [Symbicort 160/4.5] 2 puff IH BID PRN 11/17/16 [ History] [place]-3/Dha/Epa/Fish Oil [Fish Oil Conc 1,000 mg Softgel] 1,000 mg PO DAILY 05/01 [History] 3 Allergy/AdvReac Type Severity Reaction Status Date / Time No Known Allergies Allergy Verified 04/30/16 12:48 Review of Systems Provider Comments: A 12 point review of systems was performed. Pertinent positives and negatives are listed below and in the history of present illness. All other systems negative. Physical Exam - Vitals Vital Signs: Last Vital Signs Temp 97.9 F 11/20/16 15:47 Pulse 89 11/20/16 15:47 Resp 18 11/20/16 15:47 BP 105/60 11/20/16 15:47 Pulse Ox 96 11/20/16 15:47 Weight: 58.9 kg - Consciousness/Orientation Level Of Consciousness: Awake, Alert, Appropriate Patient Orientation: Person, Place, Time, Name, Age, Date of , Day of Month , Day of Week, Month, Year, Time of Day Physical Exam: GENERAL: Alert and oriented, oxygen mask, resting comfortably in bed PSYCH: Affect appropriate for circumstances HEENT: Sclerae anicteric. Skin: No rashes or petechiae. Warm to touch. Lymph nodes: No cervical or supraclavicular adenopathy. Lungs: Diffuse mild bilateral rhonchorous breath sounds Cardiovascular: Regular rhythm and normal rate. Abdomen: Large, greater than 15 cm lower midline abdominal mass that is mildly tender Extremities: No edema. No calf swelling or tenderness. No joint deformity. Neurologic: Alert, cranial nerves II-XII intact grossly; gait not assessed Oncology- Results - Labs Labs: Short CBC 11/20/16 Range/Units 03:43 WBC 15.5 H (4.3-11.1) K/mcL Hgb 11.5 (11.5-15.4) g/dL Hct 36.8 (35.3-44.9) % Plt Count 409 H (140-400) K/mcL BMP 11/20/16 03:43 Sodium 143 Potassium 3.3 L Chloride 100 Carbon Dioxide 33 H BUN 11 Creatinine 0.70 Glucose 129 H Calcium 8.9 - Diagnostic Studies Imagin11/19/2016 CTA Chest reviewed and compared to CT Chest from 09/15/2016 The patient's right hilar mass and mediastinal adenopathy has significantly increased in size compared to prior study. There also multiple new small nodules within the right upper lung lobe concerning for satellite nodules. Findings are consistent with progression of disease. The patient's hilar and mediastinal adenopathy causes severe narrowing of the right upper lobe pulmonary artery with occlusion of the apical branch. No pulmonary embolism identified. New diffuse ground-glass opacity throughout the left lung involving the majority of the right lower lung suggestive of pneumonia. 11/17/2016 CT A/P reviewed 1. In the interval, there has been development of extensive alveolar ground- glass opacity throughout both visualized lungs, greater on the left. This is a nonspecific finding. It can be seen with alveolar hemorrhage, pneumonia, and pulmonary edema. 2. Re- demonstration of a large pelvic metastatic lesion, which is unchanged in size. This creates mass effect upon the pelvic viscera, similar when compared to the previous exam. Having said that, the hydronephrosis seen on the right previously is no longer identified. 04/28/2016 MR Brain Normal MRI of the brain. There is no intracranial metastatic disease identified. 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 Comment: The recent prior diagnosis of pulmonary small cell neuroendocrine carcinoma is noted. Immunohistochemical stains performed on the current biopsy and reported in the table below support the diagnosis of small cell neuroendocrine carcinoma. - Assessment Assessment: Assessment: 41-year-old female smoker with extensive stage small cell lung cancer with large pelvic mass status post carboplatin/etoposide with progression followed by irinotecan now with further progression currently admitted with pneumonia. Plan: I had a long discussion with Teresa and her family regarding her imaging findings and overall oncologic course. Unfortunately, her disease has been quite resistant to systemic therapy. Her prognosis is quite poor. She is currently having much more discomfort with respect to the large pelvic mass. Additionally , the bulky disease within her right hilum and mediastinum has increased in size. We discussed that palliative radiotherapy can be useful in alleviating pain, obstruction, or controlling bleeding. We discussed the logistics, acute side effects, long-term risks, and benefits of palliative radiotherapy in detail. I do think she would benefit from radiotherapy to the pelvic mass as well as central thoracic disease. She wished to proceed with therapy. CT simulation has been scheduled for 11/23/2016 at 11 AM at the [facility]. I suspect she will remain admitted at that time and transportation will be arranged. I would anticipate a course of 3000 cGy in 10 fractions to each site. Treatment can be done on either inpatient or outpatient basis and will likely start 11/25 or 11/26. Thank for allowing me to participate in this patient's care. Please do not hesitate in contacting me with any questions or concerns. Walt Johnston MD Radiation Oncologist This report was generated using [employer].
[2016-11-21 03:44] LABS: Hematocrit 36.7 % (35.3-44.9); Hemoglobin 11.7 g/dL (11.5-15.4); Mean Corpuscular HGB Conc 31.9 g/dL (31.6-35.5); Mean Corpuscular Hemoglobin 33.1 pg (28.0-33.3); Mean Platelet Volume 9.2 fL (9.4-12.4); Platelet Count 379 K/mcL (140-400); Red Blood Count 3.53 M/mcL (3.82-4.97); Red Cell Distribution Width 14.6 % (11.5-14.5)
[2016-11-21 04:00] LABS: BUN/Creatinine Ratio 18 (6-26); Blood Urea Nitrogen 12 mg/dL (7-20); Carbon Dioxide 38 mEq/L (19-29); Chloride 97 mEq/L (98-109); Glucose 118 mg/dL (70-99); Osmolality,Calculated 293 (280-300); Potassium 3.9 mEq/L (3.5-4.5); Sodium 141 mEq/L (136-145); eGFR For African Americans > 60 (> 60); eGFR For Non-African Americans > 60 (> 60)
[2016-11-21] MEDS: *HR* Enoxaparin 40 MG/0.4 ML SYRINGE SQ SCH (06:17)
[2016-11-21] MEDS: Magic Mouthwash 10 ML UD Cup PO SCH ×3 (06:17→17:47)
[2016-11-21] MEDS: MethylPREDNISolone 40 MG/ML VIAL IVP SCH ×2 (06:17→17:47)
[2016-11-21] MEDS: *HR* OxyCODONE Immed Rel 5 MG TABLET PO PRN ×3 (06:20→21:57)
[2016-11-21] MEDS: Budesonide/Formoterol 160/4.5 MDI IH SCH ×2 (07:39→20:31)
[2016-11-21] MEDS: Furosemide 20 MG/2 ML VIAL IVP SCH ×2 (09:07→17:47)
[2016-11-21] MEDS: Famotidine 20 MG TABLET PO SCH ×2 (09:07→21:57)
[2016-11-21] MEDS: *HR* OxyCODONE ER (12 HR) 10 MG TABLET PO SCH ×2 (09:07→15:09)
[2016-11-21] MEDS: Nicotine 21 MG PATCH.TD24 TD SCH (09:07)
[2016-11-21] MEDS: Piperacillin/Tazobactam 3.375 GM in D5% in Water (Mini-Bag+) 100 ML IVPB SCH ×2 (09:07→17:47)
[2016-11-21] MEDS: lamoTRIgine 100 MG TABLET PO SCH ×2 (10:59→18:00)
[2016-11-21] MEDS: Ziprasidone 20 MG CAPSULE PO SCH ×2 (10:59→17:59)
[2016-11-21] MEDS: 0.9 % Sodium Chloride 500 ML IVC SCH (12:22)
[2016-11-21] MEDS: Levofloxacin 750 MG/150 ML 750 MG/150 ML BAG IVPB SCH (13:25)
--- NOTE | 2016-11-21 15:29 | Internal Med Progress Note ---
Date of Encounter: 11/21/16 Time of Encounter: 15:27 - Assessment and plan (1) Sepsis Current Visit: Yes Status: Acute Assessment and plan: Acute on chronic hypoxic respiratory failure due to acute pulmonary edema from Sepsis secondary to possible healthcare associated pneumonia/gram-negative pneumonia present upon admission/ small cell carcinoma Discontinued vancomycin. Continue Zosyn day 5 and Levaquin day 4 to cover for atypicals No IV fluid due to pulmonary edema CT scan of the abdomen showed bilateral pulmonary infiltrates in both bases compatible with pneumonia or pulmonary edema, there is a large pelvic mass represents metastatic disease CT scan of the chest showed: Right hilar mass and mediastinal adenopathy has significantly increased in size compared to prior study. There also multiple new small nodules within the right upper lung lobe concerning for satellite nodules. Findings are consistent with progression of disease. The patient's hilar and mediastinal adenopathy causes severe narrowing of the right upper lobe pulmonary artery with occlusion of the apical branch. No pulmonary embolism identified. New diffuse ground-glass opacity throughout the left lung involving the majority of the right lower lung suggestive of pneumonia. Radiation oncology consulted, CT simulation has been scheduled for Wednesday, 2016 at 11 [facility]. Qualifiers: Sepsis type: sepsis due to unspecified organism Qualified Code(s): A41.9 - Sepsis, unspecified organism (2) Pneumonia Current Visit: Yes Status: Acute Qualifiers: Pneumonia type: due to unspecified organism Laterality: bilateral Lung location: unspecified part of lung Qualified Code(s): J18.9 - Pneumonia, unspecified organism (3) Acute respiratory failure with hypoxia Current Visit: Yes Status: Acute (4) Pelvic mass Current Visit: Yes Status: Acute Assessment and plan: Follow-up with oncology radiotherapy to be started this week OxyContin for pain (5) Tobacco dependence Current Visit: Yes Status: Acute Assessment and plan: Smoking cessation counseling (6) Pulmonary edema Current Visit: Yes Status: Acute Assessment and plan: Continue Lasix, Potassium due to hypokalemia Qualifiers: Qualified Code(s): J81.0 - Acute pulmonary edema (7) Small cell lung cancer Current Visit: Yes Status: Acute Qualifiers: Laterality: right Qualified Code(s): C34.91 - Malignant neoplasm of unspecified part of right bronchus or lung (8) Anxiety Current Visit: Yes Status: Acute Assessment and plan: Xanax as needed - Subjective Interval history: Still short of breath requiring 6 L of oxygen, denies any chest pain, is bringing last phlegm and coughing constantly, denies any dysuria, complains of abdominal pain 5 out of 10 in intensity. No diarrhea. Very anxious - Constitutional Vitals: Temp Pulse Resp BP Pulse Ox 98.2 F 99 16 103/67 98 11/21/16 10:41 11/21/16 10:41 11/21/16 12:25 11/21/16 10:41 11/21/16 12:25 General appearance: Present: mild distress, A&O X 3, answers questions appropriately - Head Head exam: Present: atraumatic, normocephalic - Eye Eye exam: Present: PERRL, conjuntiva pink, sclera anicteric Pupils: Present: PERRL - Neck Neck exam general surgery: Present: supple, trachea midline. Absent: lymphadenopathy - Respiratory Respiratory exam: Present: CTAB, rales (Diffuse crackles and wheezing). Absent : accessory muscle use, rhonchi, wheezes - Cardiovascular Cardiovascular exam: Present: RRR, +S1, +S2. Absent: diastolic murmur, gallop, rubs, systolic murmur - GI/Abdominal GI/Abdominal exam: Present: distended, normal bowel sounds, soft, no peritoneal signs. Absent: tenderness - Extremities Exam Extremities exam: Present: warm, radial pulses palpable and symmetrical. Absent : calf tenderness, cyanotic, pedal edema - Neurological Exam Neurological exam: Present: CN II-XII intact, oriented X3, no focal deficits. Absent: pronater drift, facial droop, speech deficit - Skin Skin exam: Present: dry, intact Internal Medicine: Result - Labs CBC & Chem 7: 11/21/16 03:26 11/21/16 03:26 Labs: Short CBC 11/21/16 Range/Units 03:26 WBC 10.9 (4.3-11.1) K/mcL Hgb 11.7 (11.5-15.4) g/dL Hct 36.7 (35.3-44.9) % Plt Count 379 (140-400) K/mcL BMP 11/21/16 03:26 Sodium 141 Potassium 3.9 Chloride 97 L Carbon Dioxide 38 H BUN 12 Creatinine 0.66 Glucose 118 H Calcium 9.0 - VTE Documentation of Mechanical Device: Graduated compression elastic hosiery Consult Discharge Plan - Plan Referrals: Lucia Treviño, OSITO [Primary Care Provider] -
[2016-11-21] MEDS: ALPRAZolam 0.5 MG TABLET PO PRN (15:33)
[2016-11-22] MEDS: *HR* OxyCODONE ER (12 HR) 10 MG TABLET PO SCH ×3 (00:11→16:43)
[2016-11-22] MEDS: Piperacillin/Tazobactam 3.375 GM in D5% in Water (Mini-Bag+) 100 ML IVPB SCH ×3 (00:11→16:43)
[2016-11-22] MEDS: *HR* OxyCODONE Immed Rel 5 MG TABLET PO PRN ×5 (03:56→21:52)
[2016-11-22] MEDS: *HR* Enoxaparin 40 MG/0.4 ML SYRINGE SQ SCH (05:51)
[2016-11-22] MEDS: MethylPREDNISolone 40 MG/ML VIAL IVP SCH ×2 (05:51→17:30)
[2016-11-22] MEDS: Famotidine 20 MG TABLET PO SCH ×2 (07:45→21:26)
[2016-11-22] MEDS: Furosemide 20 MG/2 ML VIAL IVP SCH ×2 (07:49→17:30)
[2016-11-22] MEDS: Magic Mouthwash 10 ML UD Cup PO SCH ×3 (07:59→16:43)
[2016-11-22] MEDS: Nicotine 21 MG PATCH.TD24 TD SCH (07:59)
[2016-11-22] MEDS: Budesonide/Formoterol 160/4.5 MDI IH SCH ×2 (11:14→19:45)
[2016-11-22] MEDS: lamoTRIgine 100 MG TABLET PO SCH ×2 (11:49→17:28)
[2016-11-22] MEDS: Ziprasidone 20 MG CAPSULE PO SCH ×2 (11:49→17:28)
[2016-11-22] MEDS: Levofloxacin 750 MG/150 ML 750 MG/150 ML BAG IVPB SCH (13:12)
--- NOTE | 2016-11-22 13:14 | Internal Med Progress Note ---
Date of Encounter: 11/22/16 Time of Encounter: 13:12 - Assessment and plan (1) Sepsis Current Visit: Yes Status: Acute Assessment and plan: Acute on chronic hypoxic respiratory failure due to acute pulmonary edema from Sepsis secondary to possible healthcare associated pneumonia/gram-negative pneumonia present upon admission/ small cell carcinoma Discontinued vancomycin. Continue Zosyn day 6 and Levaquin day 5 to cover for atypicals No IV fluid due to pulmonary edema CT scan of the abdomen showed bilateral pulmonary infiltrates in both bases compatible with pneumonia or pulmonary edema, there is a large pelvic mass represents metastatic disease CT scan of the chest showed: Right hilar mass and mediastinal adenopathy has significantly increased in size compared to prior study. There also multiple new small nodules within the right upper lung lobe concerning for satellite nodules. Findings are consistent with progression of disease. The patient's hilar and mediastinal adenopathy causes severe narrowing of the right upper lobe pulmonary artery with occlusion of the apical branch. No pulmonary embolism identified. New diffuse ground-glass opacity throughout the left lung involving the majority of the right lower lung suggestive of pneumonia. Radiation oncology consulted, CT simulation has been scheduled for [facility], 2016 [facility]. Qualifiers: Sepsis type: sepsis due to unspecified organism Qualified Code(s): A41.9 - Sepsis, unspecified organism (2) Pneumonia Current Visit: Yes Status: Acute Qualifiers: Pneumonia type: due to unspecified organism Laterality: bilateral Lung location: unspecified part of lung Qualified Code(s): J18.9 - Pneumonia, unspecified organism (3) Acute respiratory failure with hypoxia Current Visit: Yes Status: Acute (4) Pelvic mass Current Visit: Yes Status: Acute Assessment and plan: Follow-up with oncology radiotherapy to be started this week OxyContin for pain (5) Tobacco dependence Current Visit: Yes Status: Acute Assessment and plan: Smoking cessation counseling (6) Pulmonary edema Current Visit: Yes Status: Acute Assessment and plan: Continue Lasix, Potassium due to hypokalemia Qualifiers: Qualified Code(s): J81.0 - Acute pulmonary edema (7) Small cell lung cancer Current Visit: Yes Status: Acute Qualifiers: Laterality: right Qualified Code(s): C34.91 - Malignant neoplasm of unspecified part of right bronchus or lung (8) Anxiety Current Visit: Yes Status: Acute Assessment and plan: Xanax as needed - Subjective Interval history: Feeling less short of breath requiring 5 L of oxygen, denies any chest pain, is bringing last phlegm and coughing constantly, denies any dysuria, complains of abdominal pain 5 out of 10 in intensity. No diarrhea. Less anxious - Constitutional Vitals: Temp Pulse Resp BP Pulse Ox 97.8 F 86 16 105/69 98 11/22/16 11:59 11/22/16 11:59 11/22/16 11:59 11/22/16 11:59 11/22/16 11:59 General appearance: Present: mild distress, A&O X 3, answers questions appropriately - Head Head exam: Present: atraumatic, normocephalic - Eye Eye exam: Present: PERRL, conjuntiva pink, sclera anicteric Pupils: Present: PERRL - Neck Neck exam general surgery: Present: supple, trachea midline. Absent: lymphadenopathy - Respiratory Respiratory exam: Present: CTAB, rales (Diffuse crackles mainly at both bases). Absent: accessory muscle use, rhonchi, wheezes - Cardiovascular Cardiovascular exam: Present: RRR, +S1, +S2. Absent: diastolic murmur, gallop, rubs, systolic murmur - GI/Abdominal GI/Abdominal exam: Present: normal bowel sounds, soft, no peritoneal signs. Absent: distended, tenderness - Extremities Exam Extremities exam: Present: warm, radial pulses palpable and symmetrical. Absent : calf tenderness, cyanotic, pedal edema - Neurological Exam Neurological exam: Present: CN II-XII intact, oriented X3, no focal deficits. Absent: pronater drift, facial droop, speech deficit - Skin Skin exam: Present: dry, intact Internal Medicine: Result - Labs CBC & Chem 7: 11/21/16 03:26 11/21/16 03:26 - VTE Documentation of Mechanical Device: Graduated compression elastic hosiery Consult Discharge Plan - Plan Referrals: Lucia Treviño CNP [Primary Care Provider] -
[2016-11-22] MEDS: ALPRAZolam 0.5 MG TABLET PO PRN (14:58)
[2016-11-23] MEDS: Piperacillin/Tazobactam 3.375 GM in D5% in Water (Mini-Bag+) 100 ML IVPB SCH ×2 (00:07→07:52)
[2016-11-23] MEDS: *HR* OxyCODONE ER (12 HR) 10 MG TABLET PO SCH ×2 (00:07→07:52)
[2016-11-23] MEDS: *HR* OxyCODONE Immed Rel 5 MG TABLET PO PRN (04:02)
[2016-11-23 05:27] LABS: Hematocrit 38.6 % (35.3-44.9); Hemoglobin 12.2 g/dL (11.5-15.4); Mean Corpuscular HGB Conc 31.6 g/dL (31.6-35.5); Mean Corpuscular Hemoglobin 32.1 pg (28.0-33.3); Mean Corpuscular Volume 101.6 fL (83.0-100.0); Mean Platelet Volume 9.1 fL (9.4-12.4); Platelet Count 416 K/mcL (140-400); Red Cell Distribution Width 14.6 % (11.5-14.5)
[2016-11-23] MEDS: *HR* Enoxaparin 40 MG/0.4 ML SYRINGE SQ SCH (05:35)
[2016-11-23] MEDS: MethylPREDNISolone 40 MG/ML VIAL IVP SCH (05:35)
[2016-11-23 05:38] LABS: BUN/Creatinine Ratio 18 (6-26); Blood Urea Nitrogen 12 mg/dL (7-20); Carbon Dioxide 34 mEq/L (19-29); Chloride 96 mEq/L (98-109); Glucose 107 mg/dL (70-99); Osmolality,Calculated 286 (280-300); Sodium 138 mEq/L (136-145); eGFR For African Americans > 60 (> 60); eGFR For Non-African Americans > 60 (> 60)
[2016-11-23 07:10] VITALS: BP 110/72
[2016-11-23] MEDS: Nicotine 21 MG PATCH.TD24 TD SCH (07:52)
[2016-11-23] MEDS: Furosemide 20 MG/2 ML VIAL IVP SCH (07:52)
[2016-11-23] MEDS: Famotidine 20 MG TABLET PO SCH (07:52)
[2016-11-23] MEDS: Magic Mouthwash 10 ML UD Cup PO SCH (07:52)
[2016-11-23] MEDS: Budesonide/Formoterol 160/4.5 MDI IH SCH (08:20)
--- NOTE | 2016-11-23 08:22 | Discharge Summary ---
Date of Encounter: 11/23/16 Time of Encounter: 08:20 - Discharge Diagnosis (1) Sepsis Priority: Primary Status: Acute Comments: Acute on chronic hypoxic respiratory failure due to acute pulmonary edema from Sepsis secondary to possible healthcare associated pneumonia/gram-negative pneumonia present upon admission/ small cell carcinoma Qualifiers: Sepsis type: sepsis due to unspecified organism Qualified Code(s): A41.9 - Sepsis, unspecified organism (2) Pneumonia Priority: Primary Status: Acute Qualifiers: Pneumonia type: due to unspecified organism Laterality: bilateral Lung location: unspecified part of lung Qualified Code(s): J18.9 - Pneumonia, unspecified organism (3) Acute respiratory failure with hypoxia Priority: Primary Status: Acute (4) Pelvic mass Priority: Secondary Status: Acute (5) Tobacco dependence Priority: Secondary Status: Acute (6) Pulmonary edema Priority: Primary Status: Acute Qualifiers: Chronicity: acute Qualified Code(s): J81.0 - Acute pulmonary edema (7) Small cell lung cancer Priority: Secondary Status: Acute Qualifiers: Laterality: right Qualified Code(s): C34.91 - Malignant neoplasm of unspecified part of right bronchus or lung (8) Anxiety Priority: Secondary Status: Acute - Discharge Medications Prescriptions: OxyCODONE ER (12 HR) [OxyCONTIN] 10 mg PO Q8HR #20 tab.er.12h Allopurinol [Zyloprim] 300 mg PO DAILY #15 tablet ALPRAZolam [Xanax 0.5 MG Tablet] 0.5 mg PO TID PRN #20 tablet PRN Reason: Anxiety Docusate Sodium [Colace] 100 mg PO BID #60 capsule Furosemide [Lasix] 20 mg PO DAILY #30 tablet Levofloxacin [Levaquin] 750 mg PO DAILY #1 tablet Omeprazole [PriLOSEC] 40 mg PO DAILY #30 cap OxyCODONE Immed Rel [Roxicodone 5 MG] 10 mg PO Q6H PRN #20 tablet PRN Reason: Severe Pain (7-10) Potassium Chloride 10 meq PO DAILY #30 tab.er.prt predniSONE [PredniSONE] 10 mg PO DAILY 12 Days tablet Home Medications: Albuterol Sulfate [Ventolin Hfa] 2 puff IH Q4H PRN 03/30/16 [History] Ziprasidone HCl [Geodon] 60 mg PO BID 03/30/16 [History] lamoTRIgine [Lamictal] 150 mg PO BID 03/30/16 [History] Albuterol Neb [Proventil Neb] 2.5 mg IH TID PRN 04/08/16 [History] Budesonide/Formoterol 160/4.5 [Symbicort 160/4.5] 2 puff IH BID PRN 11/17/16 [ History] [place]-3/Dha/Epa/Fish Oil [Fish Oil Conc 1,000 mg Softgel] 1,000 mg PO DAILY 05/01 [History] ALPRAZolam [Xanax 0.5 MG Tablet] 0.5 mg PO TID PRN #20 tablet 11/23/16 [Rx] Allopurinol [Zyloprim] 300 mg PO DAILY #15 tablet 11/23/16 [Rx] Docusate Sodium [Colace] 100 mg PO BID #60 capsule 11/23/16 [Rx] Furosemide [Lasix] 20 mg PO DAILY #30 tablet 11/23/16 [Rx] Levofloxacin [Levaquin] 750 mg PO DAILY #1 tablet 11/23/16 [Rx] Omeprazole [PriLOSEC] 40 mg PO DAILY #30 cap 11/23/16 [Rx] OxyCODONE ER (12 HR) [OxyCONTIN] 10 mg PO Q8HR #20 tab.er.12h 11/23/16 [Rx] OxyCODONE Immed Rel [Roxicodone 5 MG] 10 mg PO Q6H PRN #20 tablet 11/23/16 [Rx] Potassium Chloride 10 meq PO DAILY #30 tab.er.prt 11/23/16 [Rx] predniSONE [PredniSONE] 10 mg PO DAILY 12 Days tablet 11/23/16 [Rx] Allergies/Adverse Reactions: 3 Allergy/AdvReac Type Severity Reaction Status Date / Time No Known Allergies Allergy Verified 04/30/16 12:48 Date of admission: 11/17/16 19:57 Primary care physician: Lucia Treviño CNP - Patient Status Disposition: Home Health Service Condition: Fair Overall status at discharge: patient is progressing back to baseline - Discharge Instructions Instructions: Sepsis (DC), Pneumonia (DC) Follow Up With: Lucia Treviño CNP [Primary Care Provider] - (call for an appt. left message) Additional Instructions: Follow-up with primary care physician within the next 7 days. Continue prednisone taper, take last dose of Levaquin on 11/24/2016. Continue Lasix. Follow-up with oncology and radiation oncology within the next 7 days. Continue oxygen at home - Diet and Activity Activity: increase activity as tolerated, wear oxygen at all times Diet: low fat, low cholesterol Hospital course: Ms. Prince is a 41 year old female with PMHx of small cell lung cancer STAGE IV s/p bx of right hilar mediastinal mass, and metastatic pelvic masses, on Palliative carboplatin etoposide chemotherapy, chronic tobacco dependence, chronic moderate intermittent asthma, who was referred to the ER from her oncologist office with progressively worsening SOB , cough with yellow expectoration from last 4-5 days prior to admission. She had CXR done which showed multi lobar pneumonia, also had CT of Abd and Pelvis done which showed interstitial lung disease, pulmonary edema and pneumonia. Was started on vancomycin and Zosyn Discontinued vancomycin. Completed 7 days of Zosyn and 6 days of Levaquin Did not receive IV fluids due to pulmonary edema. Was kept on Lasix. Dr. Tavarez followed the case. CT scan of the abdomen showed bilateral pulmonary infiltrates in both bases compatible with pneumonia or pulmonary edema, there is a large pelvic mass represents metastatic disease CT scan of the chest showed: Right hilar mass and mediastinal adenopathy has significantly increased in size compared to prior study. There also multiple new small nodules within the right upper lung lobe concerning for satellite nodules. Findings are consistent with progression of disease. The patient's hilar and mediastinal adenopathy causes severe narrowing of the right upper lobe pulmonary artery with occlusion of the apical branch. No pulmonary embolism identified. New diffuse ground-glass opacity throughout the left lung involving the majority of the right lower lung suggestive of pneumonia. Radiation oncology consulted, CT [facility] has been scheduled [facility]. During her hospitalization the patient required high doses of oxygen up to 10 L , now requiring only 3 Lt The patient was given the option to have a physical therapy evaluation but at the moment she prefers to go home. Dr. Johnston from a radiology oncology sent a prescription for allopurinol to her pharmacy. . - Time Spent with Patient Total time spent providing and/or coordinating discharge services: Greater than 30 minutes (40 min) - Constitutional Vitals: Temp Pulse Resp BP Pulse Ox 97.6 F 78 15 110/72 98 11/23/16 07:05 10/09/17 07:05 11/23/16 07:05 11/23/16 07:05 11/23/16 07:05 General appearance: Present: mild distress, A&O X 3, answers questions appropriately - Head Head exam: Present: atraumatic, normocephalic - Eye Eye exam: Present: PERRL, conjuntiva pink, sclera anicteric Pupils: Present: PERRL - Neck Neck exam general surgery: Present: supple, trachea midline. Absent: lymphadenopathy - Respiratory Respiratory exam: Present: decreased breath sounds (Minimal fine bibasilar crackles), CTAB. Absent: accessory muscle use, rales, rhonchi, wheezes - Cardiovascular Cardiovascular exam: Present: RRR, +S1, +S2. Absent: diastolic murmur, gallop, rubs, systolic murmur - GI/Abdominal GI/Abdominal exam: Present: distended, normal bowel sounds, soft, no peritoneal signs. Absent: tenderness - Extremities Exam Extremities exam: Present: warm, radial pulses palpable and symmetrical. Absent : calf tenderness, cyanotic, pedal edema - Neurological Exam Neurological exam: Present: CN II-XII intact, oriented X3, no focal deficits. Absent: pronater drift, facial droop, speech deficit - Skin Skin exam: Present: dry, intact - VTE Documentation of Mechanical Device: Graduated compression elastic hosiery
--- NOTE | 2016-11-23 08:40 | Physician Discharge Referral ---
Home Health/Hosp Referral Info Transfer to: Home Health Provider in Charge Post Discharge: PCP - Diagnosis (1) Sepsis Status: Acute (2) Pneumonia Status: Acute (3) Acute respiratory failure with hypoxia Status: Acute (4) Pelvic mass Status: Acute (5) Tobacco dependence Status: Acute (6) Pulmonary edema Status: Acute (7) Small cell lung cancer Status: Acute (8) Anxiety Status: Acute - Respiratory Orders Oxygen / L per min (5 L) Smoking Cessation: Smoking cessation has been advised. For more information, call the [place] Tobacco Quit Line at 1-400-QZIT-NOW. - Diet/Nutrition Diet/Nutrition Orders: Regular - Activity Activity: List: Allopurinol added to the list of medications by Dr. Johnston, prescription sent to her pharmacy - Services Needed Following services are medically necessary services: Nursing, Home Health Aide, Physical Therapy, Occupational Therapy Other Treatments: Follow-up with primary care physician within the next 7 days. Continue prednisone taper, take last dose of Levaquin on 11/24/2016. Continue Lasix. Follow-up with oncology and radiation oncology within the next 7 days. Continue oxygen at home - Transfer Medications Prescriptions: OxyCODONE ER (12 HR) [OxyCONTIN] 10 mg PO Q8HR #20 tab.er.12h Allopurinol [Zyloprim] 300 mg PO DAILY #15 tablet ALPRAZolam [Xanax 0.5 MG Tablet] 0.5 mg PO TID PRN #20 tablet PRN Reason: Anxiety Docusate Sodium [Colace] 100 mg PO BID #60 capsule Furosemide [Lasix] 20 mg PO DAILY #30 tablet Levofloxacin [Levaquin] 750 mg PO DAILY #1 tablet Omeprazole [PriLOSEC] 40 mg PO DAILY #30 cap OxyCODONE Immed Rel [Roxicodone 5 MG] 10 mg PO Q6H PRN #20 tablet PRN Reason: Severe Pain (7-10) Potassium Chloride 10 meq PO DAILY #30 tab.er.prt predniSONE [PredniSONE] 10 mg PO DAILY 12 Days tablet Home Medications: Albuterol Sulfate [Ventolin Hfa] 2 puff IH Q4H PRN 03/30/16 [History] Ziprasidone HCl [Geodon] 60 mg PO BID 03/30/16 [History] lamoTRIgine [Lamictal] 150 mg PO BID 03/30/16 [History] Albuterol Neb [Proventil Neb] 2.5 mg IH TID PRN 04/08/16 [History] Budesonide/Formoterol 160/4.5 [Symbicort 160/4.5] 2 puff IH BID PRN 11/17/16 [ History] [place]-3/Dha/Epa/Fish Oil [Fish Oil Conc 1,000 mg Softgel] 1,000 mg PO DAILY 05/01 [History] ALPRAZolam [Xanax 0.5 MG Tablet] 0.5 mg PO TID PRN #20 tablet 11/23/16 [Rx] Allopurinol [Zyloprim] 300 mg PO DAILY #15 tablet 11/23/16 [Rx] Docusate Sodium [Colace] 100 mg PO BID #60 capsule 11/23/16 [Rx] Furosemide [Lasix] 20 mg PO DAILY #30 tablet 11/23/16 [Rx] Levofloxacin [Levaquin] 750 mg PO DAILY #1 tablet 11/23/16 [Rx] Omeprazole [PriLOSEC] 40 mg PO DAILY #30 cap 11/23/16 [Rx] OxyCODONE ER (12 HR) [OxyCONTIN] 10 mg PO Q8HR #20 tab.er.12h 11/23/16 [Rx] OxyCODONE Immed Rel [Roxicodone 5 MG] 10 mg PO Q6H PRN #20 tablet 11/23/16 [Rx] Potassium Chloride 10 meq PO DAILY #30 tab.er.prt 11/23/16 [Rx] predniSONE [PredniSONE] 10 mg PO DAILY 12 Days tablet 11/23/16 [Rx] Allergies/Adverse Reactions: 3 Allergy/AdvReac Type Severity Reaction Status Date / Time No Known Allergies Allergy Verified 04/30/16 12:48 Certification: Further, I certify that my clinical findings support that this patient is homebound (i.e. absences from home require considerable and taxing effort and are for medical reasons or caodaism services or infrequently or short duration when for other reasons) because: Homebound Reason: Patient requires assistance of a person or device to safely leave home Attestation: My signature below is to certify that this patient is under my care and that I, or nurse practitioner, or a physician's assistant prosecuting attorney working with me, has a face-to -face encounter with this patient.
[2016-11-23] MEDS: Ziprasidone 20 MG CAPSULE PO SCH (10:25)
[2016-11-23] MEDS: lamoTRIgine 100 MG TABLET PO SCH (10:25)
--- NOTE | 2016-11-23 12:59 | Rad Onc Dictation ---
Radiation Oncology Dictation Date of Service: 11/23/16 - Oncology History Comments: Diagnosis: Extensive stage small cell lung cancer diagnosed 03/2016 Previous Treatment: 04/08/2016: Bronchoscopy with endobronchial ultrasound and biopsy 05/11/2016: Needle core biopsy of uterine mass (small cell carcinoma) 05/13/2016 - 09/02/2016: Carboplatin/Etoposide x 6 cycles 09/24/2016 - 10/30/2016: Irinotecan - Procedure Note Comments: CT Simulation and Treatment Planning Note For palliative thoracic and pelvic radiotherapy. POSITIONING AND DEVICES Teresa was brought into the CT Simulation suite and placed in the supine position. A custom vac lock device for arm positioning was created. 3D CT SIMULATION 3D CT Simulation was required secondary to irregular shape of the target volume , close proximity to critical normal structures, target volume requires 3D imaging for identification. Critical normal structures adjacent to the target volumes include the following: heart, lungs, esophagus, spinal cord, bowel, bladder, kidneys. CT images were obtained. [employer] TumorLOC software was utilized to place an isocenter for treatment planning. This will be transferred to the lasers in the treatment room and will be used to roque the patient for daily positioning. A 4 field plan will be utilized to deliver 3000 cGy in 10 fractions of 300 cGy each to the pelvis A 2 field plan will be utilized to deliver 3000 cGy in 10 fractions of 300 cGy each to the thorax. WEEKLY MONITORING This patient will require weekly monitoring in the form of on-treatment visits to assess for progression through treatment, ability to tolerate further treatment, and to assess for treatment-related side effects in order to manage them. CONCURRENT CHEMOTHERAPY None CONSENT Consent has been obtained, and the patient is amenable to treatment. The risks and benefits of radiotherapy have been explained, and the patient is agreeable to proceed. A separate consent document has been filed. Marco Antonio Johnston MD Radiation Oncologist [facility] [address] [place] [address] This report was generated using [employer] dictation.
[2016-11-23] MEDS ORDERED: levoFLOXacin 750 MG TABLET PO SCH (13:00)
== END 2016-11-23 12:36 | disposition home health service (06) | DRG 720 ==
LOC: 2ANU 16:41 → EMEROO 16:41 → 2ANU 19:30
PROVIDERS: ADMIT Nurse Practitioner Family; ATTEND Internal Medicine